=== PATIENT | male | born 1945 | race Caucasian/White ===

== ENCOUNTER 2016-10-30 12:18 | Emergency (ER) | payer MEDICARE | END 2016-10-30 13:25 | disposition home or self-care (01) | LOC: FER 12:18 | DX: S70.01XA Contusion of right hip, initial encounter (principal); I48.91 Unspecified atrial fibrillation; Z79.899 Other long term (current) drug therapy; Z88.0 Allergy status to penicillin; W19.XXXA Unspecified fall, initial encounter; Y92.009 Unspecified place in unspecified non-institutional (private) residence as the place of occurrence of the external cause | CPT/HCPCS: 72170; 73502; J1030 ==

== ENCOUNTER 2020-07-27 10:45 | Emergency (ER) | payer MEDICARE ==
[~2020-07-27 10:45] MED LIST: BACLOFEN 10MG T10 MG PO; BACTRIM DS TAB1 EACH PO; CELEXA 40MG TAB40 MG PO; CYCLOBENZAPRINE10 MG PO; DIGITEK250 MCG PO; MEDROL 4MG DOSEP4 MG PO; NAPROXEN500 MG PO; NORCO 5-325 TA1 EACH PO; PREDNISONE50 MG PO; PYRIDIUM100 MG PO; ULTRAM50 MG PO; VENTOLIN HFA IN18 GM INH; ZOFRAN4 MG PO; ZPAK PO
[2020-07-27 11:58] LABS: BASOPHIL 0.8 % (0-2); EOSINOPHIL 6.8 % (0-7); HCT 43.3 % (42.0-52.0); HGB 13.8 g/dl (13.2-18.0); LYMPHOCYTE 23.7 % (15-48); MCH 29.4 pg (25.0-31.0); MCHC 31.9 g/dL (32.0-36.0); MCV 92.1 fL (78.0-100.0); MPV 10.2 fL (6.0-9.5); NEUTROPHIL 59.1 % (41-80); NRBC 0; PLT 281 K/uL (150-400); RDW 13.5 % (11.5-14.0); WBC 10.2 K/uL (4.0-10.5)
[2020-07-27 12:15] LABS: PRO-BNP 123 pg/mL (<125)
[2020-07-27 12:22] LABS: ALBUMIN 3.7 g/dL (3.4-5.0); BILIRUBIN - TOTAL 0.5 mg/dL (0.2-1.0); BUN/CREAT RATIO (CALC) 11.2 RATIO; CREATININE 1.34 mg/dL (0.67-1.17); GLOBULIN (CALCULATION) 2.9 g/dL; POTASSIUM 4.7 mmol/L (3.5-5.1); TOTAL PROTEIN 6.6 g/dL (6.4-8.2)
[2020-07-27] MEDS ORDERED: PREDNISONE 20MG20 MG PO (13:40)
== END 2020-07-27 13:04 | disposition home or self-care (01) ==
LOC: FER 10:45
PROVIDERS: Emergency Medicine
DX: J44.1 Chronic obstructive pulmonary disease with (acute) exacerbation (principal); I48.91 Unspecified atrial fibrillation; Z95.0 Presence of cardiac pacemaker; Z87.891 Personal history of nicotine dependence; Z88.0 Allergy status to penicillin; Z20.822 Contact with and (suspected) exposure to COVID-19
CPT/HCPCS: 36415; 36600; 71045; 80053; 82803; 83605; 83880; 84484; 85025; 87040; 93005; 94760; J2930; U0002

== ENCOUNTER 2020-09-21 09:25 | Emergency (ER) | payer MEDICARE ==
[~2020-09-21 09:25] MED LIST changes: +PREDNISONE 20MG20 MG PO
[2020-09-21 12:32] LABS: BASOPHIL 0.4 % (0-2); EOSINOPHIL 0.5 % (0-7); HCT 44.6 % (42.0-52.0); HGB 14.6 g/dl (13.2-18.0); LYMPHOCYTE 10.3 % (15-48); MCH 29.4 pg (25.0-31.0); MCHC 32.7 g/dL (32.0-36.0); MCV 89.7 fL (78.0-100.0); MONOCYTE 1.5 % (0-12); MPV 9.7 fL (6.0-9.5); NEUTROPHIL 86.8 % (41-80); NRBC 0; PLT 284 K/uL (150-400); RBC 4.97 M/uL (4.70-6.00); RDW 13.5 % (11.5-14.0); WBC 9.5 K/uL (4.0-10.5)
[2020-09-21 12:59] LABS: ALBUMIN 4.1 g/dL (3.4-5.0); BILIRUBIN - TOTAL 0.4 mg/dL (0.2-1.0); BUN/CREAT RATIO (CALC) 12.8 RATIO; CREATININE 1.17 mg/dL (0.67-1.17); GLOBULIN (CALCULATION) 3.7 g/dL; POTASSIUM 4.9 mmol/L (3.5-5.1); TOTAL PROTEIN 7.8 g/dL (6.4-8.2)
[2020-09-21 13:06] LABS: PRO-BNP 139 pg/mL (<125)
[2020-09-21] MEDS ORDERED: VIBRAMYCIN100 MG PO (13:58)
[2020-09-21] MEDS ORDERED: MEDROL 4MG DOSEP4 MG PO (13:58)
== END 2020-09-21 14:44 | disposition home or self-care (01) ==
LOC: FER 09:25
PROVIDERS: Emergency Medicine
DX: J32.9 Chronic sinusitis, unspecified (principal); I11.0 Hypertensive heart disease with heart failure; I50.9 Heart failure, unspecified; Z88.0 Allergy status to penicillin; Z87.891 Personal history of nicotine dependence
CPT/HCPCS: 36415; 71046; 80053; 80162; 83880; 84484; 85025; 93005; 94640; 94664; J2930

== ENCOUNTER 2021-08-21 09:48 | Emergency (ER) | payer MEDICARE ==
[~2021-08-21 09:48] MED LIST changes: +VIBRAMYCIN100 MG PO
[2021-08-21 11:34] LABS: BASOPHIL 0.9 % (0-2); EOSINOPHIL 5.9 % (0-7); HCT 40.7 % (42.0-52.0); LYMPHOCYTE 19.7 % (15-48); MCH 28.6 pg (25.0-31.0); MCHC 31.9 g/dL (32.0-36.0); MCV 89.6 fL (78.0-100.0); MONOCYTE 8.8 % (0-12); MPV 10.7 fL (6.0-9.5); NEUTROPHIL 64.2 % (41-80); NRBC 0; PLT 263 K/uL (150-400); RBC 4.54 M/uL (4.70-6.00); RDW 13.7 % (11.5-14.0); WBC 8.7 K/uL (4.0-10.5)
[2021-08-21 12:17] LABS: CORONAVIRUS 2019 SARS-COV-2 NEGATIVE (NEGATIVE); INFLUENZA A NAA NEGATIVE (NEGATIVE)
[2021-08-21] MEDS ORDERED: PREDNISONE 20MG20 MG PO (13:03)
[2021-08-21] MEDS ORDERED: VENTOLIN HFA IN18 GM INH (13:03)
[2021-08-21] MEDS ORDERED: VIBRAMYCIN100 MG PO (13:03)
[2021-08-21] MEDS ORDERED: SYMBICORT 16010.2 GM PO (13:03)
[2021-08-21 13:22] LABS: CREATININE 1.25 mg/dL (0.67-1.17); POTASSIUM 4.6 mmol/L (3.5-5.1)
== END 2021-08-21 13:38 | disposition home or self-care (01) ==
LOC: FER 09:48
PROVIDERS: Internal Medicine
DX: J44.1 Chronic obstructive pulmonary disease with (acute) exacerbation (principal); Z88.0 Allergy status to penicillin; Z87.891 Personal history of nicotine dependence; Z20.822 Contact with and (suspected) exposure to COVID-19
CPT/HCPCS: 36415; 71045; 80048; 83880; 84145; 85025; 94664; J1100; U0002